=== PATIENT | female | born 1990 | race Caucasian/White ===

== ENCOUNTER 2019-08-08 02:20 | Observation (INO) | payer MEDICAID ==
[~2019-08-08] VITALS: Ht 157.5 cm; Wt 86.2 kg
[2019-08-08] MEDS ORDERED: PREN-380 PO (03:34)
[2019-08-08] MEDS ORDERED: MORPHINE SULFATE 4 MG/ML SYR IVP ONE (03:35)
[2019-08-08] MEDS ORDERED: MORPHINE SULFATE 10 MG/ML VIAL ONE (03:45)
== END 2019-08-08 09:50 | disposition home or self-care (01) ==
LOC: MFCC 02:20
PROVIDERS: ADMIT Obstetrics & Gynecology; ATTEND Obstetrics & Gynecology
DX: O26.893 Other specified pregnancy related conditions, third trimester (principal); R10.9 Unspecified abdominal pain; Z3A.34 34 weeks gestation of pregnancy
CPT/HCPCS: G0378; J2270

== ENCOUNTER 2019-08-14 16:19 | Inpatient (IN) | payer MEDICAID ==
[~2019-08-14] VITALS: Ht 157.5 cm; Wt 90.7 kg
[~2019-08-14 16:19] MED LIST: PREN-380 PO
[2019-08-14] MEDS ORDERED: LACTATED RINGERS 1,000 ML IV SCH (16:29)
[2019-08-14] MEDS ORDERED: METHYLERGONOVINE 0.2 MG/ML AMP IM PRN (16:30)
[2019-08-14] MEDS ORDERED: CARBOPROST 250 MCG/ML AMP IM PRN (16:30)
[2019-08-14] MEDS ORDERED: OXYTOCIN 20 UNITS in LACTATED RINGERS 1,000 ML IV SCH (16:30)
[2019-08-14] MEDS ORDERED: AMPICILLIN 2,000 MG VIAL ONE (16:52)
[2019-08-14] MEDS ORDERED: AMPICILLIN 2,000 MG in NACL 0.9% MINI-BAG PLUS 100 ML IV SCH (17:00)
[2019-08-14 17:01] LABS: BASOPHILS % (AUTO) 0.2 % (0.0-2.0); EOSINOPHILS % (AUTO) 0.1 % (0.0-4.0); HEMATOCRIT 28.8 % (36-48); HEMOGLOBIN 9.4 g/dL (12.0-16.0); LYMPHOCYTES # (AUTO) 1.2 K/uL (2.5-16.5); LYMPHOCYTES % (AUTO) 16.1 % (20.5-51.1); MEAN CORPUSCULAR HEMOGLOBIN 26 pg (27-31); MEAN CORPUSCULAR HGB CONC 33 g/dL (33-37); MEAN CORPUSCULAR VOLUME 80.3 fL (80-94); MONOCYTES # (AUTO) 0.3 K/uL (0.8-1.0); MONOCYTES % (AUTO) 4.5 % (1.7-9.3); NEUTROPHILS % (AUTO) 79.1 % (42.2-75.2); PLATELET COUNT (AUTO) 156 K/uL (140-450); RED BLOOD CELL COUNT(AUTO) 3.58 MIL/uL (4.20-5.40); WHITE BLOOD COUNT (AUTO) 7.5 K/uL (4.8-10.8)
[2019-08-14 17:17] LABS: ALBUMIN 2.2 g/dL (3.4-5.0); ANION GAP 14.1 (8-16); CARBON DIOXIDE 22.4 mmol/L (21-32); CREATININE 0.7 mg/dL (0.6-1.3); POTASSIUM 3.5 mmol/L (3.5-5.1); TOTAL BILIRUBIN 0.2 mg/dL (0.0-1.0)
[2019-08-14 17:40] LABS: BILIRUBIN,URINE NEGATIVE (NEGATIVE); BLOOD, URINE 2+ (NEGATIVE); COLOR,URINE YELLOW (YELLOW); LEUKOCYTE ESTERASE ,URINE 1+ (NEGATIVE); NITRITE, URINE NEGATIVE (NEGATIVE); PH,URINE 6.5 (5.0-9.0); UGLUCOSE NEGATIVE (NEGATIVE)
[2019-08-14 17:42] LABS: APPEARANCE,URINE HAZY (CLEAR)
[2019-08-14 18:01] LABS: CALCIUM OXALATE CRYSTALS,UR 0-10 /HPF (None Seen); RBC,URINE 0-5 /HPF (0-5); WBC,URINE 0-5 /HPF (0-5)
[2019-08-14 19:32] VITALS: BP 130/77
[2019-08-14] MEDS ORDERED: AMPICILLIN 1,000 MG in NACL 0.9% MINI-BAG PLUS 50 ML IV SCH (20:00)
[2019-08-14] MEDS ORDERED: OXYTOCIN 20 UNITS/LR PREMIX 1,000 ML IV ONE (20:26)
[2019-08-14] MEDS ORDERED: MORPHINE SULFATE 2 MG/ML SYR IVP PRN (21:00)
[2019-08-15] MEDS ORDERED: MORPHINE SULFATE 10 MG/ML VIAL ONE (02:47)
[2019-08-15 02:56] VITALS: BP 119/66
--- NOTE | 2019-08-15 08:54 | NUR ---
PATIENT HAS BEEN SCREENED AND CATEGORIZED LOW NUTRITION RISK. PATIENT WILL BE SEEN WITHIN 7 DAYS OF ADMISSION. 08/21/[address]
[2019-08-15] MEDS ORDERED: BENZOCAINE/MENTHOL 20%-0.5% 60 GM CAN TP PRN (14:00)
[2019-08-15] MEDS ORDERED: METHYLERGONOVINE 0.2 MG/ML AMP IM PRN (14:00)
[2019-08-15] MEDS ORDERED: MEASLES, MUMPS, AND RUBELLA 1 VIAL SQVAC PRN (14:00)
[2019-08-15] MEDS ORDERED: OXYTOCIN 10 UNITS/ML VIAL IM PRN (14:00)
[2019-08-15] MEDS ORDERED: TEMAZEPAM 15 MG CAP PO PRN (14:00)
[2019-08-15] MEDS ORDERED: HYDROcodone/APAP 5/325 MG 1 TAB TAB PO PRN (14:00)
[2019-08-15] MEDS ORDERED: SODIUM PHOSPHATE 118 ML ENEM RC PRN (14:00)
[2019-08-15] MEDS: IBUPROFEN 800 MG TAB PO PRN (16:54)
[2019-08-15] MEDS ORDERED: DOCUSATE SOD/SENNA 50/8.6 MG 1 TAB PO SCH (21:00)
[2019-08-16 06:31] LABS: HEMATOCRIT 25.7 % (36-48); HEMOGLOBIN 8.4 g/dL (12.0-16.0)
[2019-08-16] MEDS: IBUPROFEN 800 MG TAB PO PRN (08:28)
== END 2019-08-16 17:00 | disposition home or self-care (01) | DRG 560 ==
LOC: MLD 16:19 → OBSVTOIN 16:19 → MLD 16:22 → MFCC 08-15 14:04
PROVIDERS: ADMIT Obstetrics & Gynecology; ATTEND Obstetrics & Gynecology
PROC: 10E0XZZ Delivery of Products of Conception, External Approach (ICD-10-PCS; principal; 2019-08-15)
PROC: 10907ZC Drainage of Amniotic Fluid, Therapeutic from Products of Conception, Via Natural or Artificial Opening (ICD-10-PCS; 2019-08-15)
DX: O75.9 Complication of labor and delivery, unspecified (principal); R71.0 Precipitous drop in hematocrit; Z37.0 Single live birth; Z3A.37 37 weeks gestation of pregnancy
CPT/HCPCS: 36415; 59409; 80053; 81001; 85018; 85025; 86592; 86886; 86900; 86901; 87086; 87653-90; J0290; J2270; J2590; J7120